=== PATIENT | male | born 1990 | race Caucasian/White ===

== ENCOUNTER 2019-11-22 15:32 | Inpatient (IN) | payer OTHER ==
[~2019-11-22] VITALS: Ht 170.2 cm; Wt 59.6 kg
--- NOTE | 2019-11-22 16:24 | NUR ---
PT C/O WAKING UP SATURDAY MORNING WITH LEFT RIB PAIN, DENIES TRAUMA. PT HAS BEEN WAITING IT OUT BY STRETCHING AND TAKING PAIN MEDS. OXYGEN 87% AT . PT TALKING IN FULL SENTENCES, OXYGEN MID 90% WHILE TALKING. CONNECTED TO MONITORING. CALL LIGHT IN REACH. MOM AT BEDSIDE. AWAITING ORDERS AT THIS TIME.
--- NOTE | 2019-11-22 16:57 | NUR ---
IV START. LABS DRAWN. UA COLLECTED. PT RESTING COMFORTABLY ON GURNEY. MOM AT BEDSIDE.
[2019-11-22] MEDS ORDERED: KETOROLAC 30 MG/1 ML IVPush ONE (17:00)
[2019-11-22] MEDS ORDERED: ACETAMINOPHEN 325 MG TABLET PO ONE (17:00)
[2019-11-22] MEDS ORDERED: SODIUM CHLORIDE FLUSH 10ML SYR IVF ONE (17:00)
[2019-11-22 17:20] LABS: BASOPHILS # (AUTO) 0.01 x10^3/uL (0-0.1); BASOPHILS % (AUTO) 0 % (0-1); EOSINOPHILS # (AUTO) 0.04 x10^3/uL (0-0.4); EOSINOPHILS % (AUTO) 1 % (1-7); LYMPHOCYTES # (AUTO) 0.41 x10^3/uL (1-3.4); LYMPHOCYTES % (AUTO) 12 % (22-44); MD NO; MEAN CORPUSCULAR HEMOGLOBIN 32.4 pg (27.5-34.5); MEAN CORPUSCULAR HGB CONC 33.6 g/dL (33.2-36.2); MEAN CORPUSCULAR VOLUME 96.4 fL (81-97); MONOCYTES # (AUTO) 0.28 x10^3/uL (0.2-0.8); MONOCYTES % (AUTO) 8 % (2-9); NEUTROPHILS # (AUTO) 2.59 x10^3/uL (1.8-6.8); NEUTROPHILS % (AUTO) 78 % (42-75); PLATELET COUNT 136 x10^3/uL (130-400); RED BLOOD COUNT 5.14 x10^6/uL (4.38-5.82); RED CELL DISTRIBUTION WIDTH 12.5 % (9.4-14.8)
[2019-11-22 17:22] LABS: ALBUMIN 4.2 g/dL (3.4-5.0); ANION GAP 9 mmol/L (5-15); CALCIUM 8.7 mg/dL (8.5-10.1); CHLORIDE 103 mmol/L (98-107); CREATININE 1.06 mg/dL (0.7-1.3)
[2019-11-22 17:22] LABS: MICROSCOPIC NOT IND
[2019-11-22 17:31] LABS: CULTURE INDICATED? NO
[2019-11-22] MEDS ORDERED: KETOROLAC 30 MG/1 ML ONE (17:37)
[2019-11-22] MEDS ORDERED: ACETAMINOPHEN 500 MG TABLET ONE (17:37)
--- NOTE | 2019-11-22 17:44 | NUR ---
MEDS ADMIN PER JAN. PT RESTING COMFORTABLY ON [facility]
[2019-11-22] MEDS ORDERED: FURO-93 PO (17:47)
[2019-11-22] MEDS ORDERED: LISI-424 PO (17:47)
[2019-11-22] MEDS ORDERED: ASPI-515 PO (17:47)
--- NOTE | 2019-11-22 18:09 | NUR ---
PT TAKEN TO CT
[2019-11-22] MEDS ORDERED: OMNIPAQUE 350 MG/ML, 100ML BOTTLE ONE (18:17)
[2019-11-22] MEDS ORDERED: HEPARIN 25,000 UNITS/500ML PMX 500 ML IV PRN ×2 (19:00→22:00)
[2019-11-22] MEDS ORDERED: HEPARIN 5,000 UNITS/ML, 1ML IV ONE (19:00)
[2019-11-22] MEDS ORDERED: HEPARIN 5,000 UNITS/ML, 1ML ONE (19:02)
[2019-11-22] MEDS ORDERED: HEPARIN 25,000 UNITS/500ML PMX 500 ML ONE (19:03)
--- NOTE | 2019-11-22 19:31 | NUR ---
HEPARIN STARTED PER PROTOCOL. VERIFIED WITH SECOND RN.
[2019-11-22] MEDS ORDERED: ACETAMINOPHEN 325 MG TABLET PO PRN (20:30)
[2019-11-22] MEDS ORDERED: DOCUSATE 100 MG CAPSULE PO PRN (20:30)
[2019-11-22] MEDS ORDERED: TEMAZEPAM 15 MG CAPSULE PO PRN (20:30)
[2019-11-22] MEDS ORDERED: ONDANSETRON ODT 4 MG PO PRN (20:30)
--- NOTE | 2019-11-22 20:38 | NUR ---
REPORT GIVEN TO SABRINA BHANDARI.
[2019-11-22 21:18] VITALS: BP 114/64
[2019-11-22] MEDS ORDERED: HEPARIN 5,000 UNITS/ML, 1ML IV PRN (22:00)
[2019-11-23 01:19] VITALS: BP 104/66
[2019-11-23 01:52] LABS: BASOPHILS # (AUTO) 0.01 x10^3/uL (0-0.1); BASOPHILS % (AUTO) 0 % (0-1); EOSINOPHILS # (AUTO) 0.02 x10^3/uL (0-0.4); EOSINOPHILS % (AUTO) 1 % (1-7); LYMPHOCYTES % (AUTO) 29 % (22-44); MD NO; MEAN CORPUSCULAR HEMOGLOBIN 31.7 pg (27.5-34.5); MEAN CORPUSCULAR HGB CONC 33.4 g/dL (33.2-36.2); MEAN CORPUSCULAR VOLUME 94.8 fL (81-97); MEAN PLATELET VOLUME 8.9 fL (7.4-10.4); MONOCYTES # (AUTO) 0.34 x10^3/uL (0.2-0.8); MONOCYTES % (AUTO) 10 % (2-9); NEUTROPHILS % (AUTO) 60 % (42-75); PLATELET COUNT 128 x10^3/uL (130-400); RED CELL DISTRIBUTION WIDTH 12.8 % (9.4-14.8)
[2019-11-23 01:55] LABS: ANION GAP 6 mmol/L (5-15); CALCIUM 8.4 mg/dL (8.5-10.1); CHLORIDE 107 mmol/L (98-107); CREATININE 0.98 mg/dL (0.7-1.3)
[2019-11-23 07:21] VITALS: BP 107/65
[2019-11-23] MEDS ORDERED: POTASSIUM CHLORIDE 20 MEQ TAB.ER.PRT PO ONE (08:00)
[2019-11-23] MEDS: LISINOPRIL 5 MG TABLET PO SCH (08:28)
[2019-11-23] MEDS: ASPIRIN 81 MG TABLET EC PO SCH (08:28)
[2019-11-23] MEDS: FUROSEMIDE 20 MG TABLET PO SCH (08:29)
[2019-11-23] MEDS: APIXABAN 5 MG TABLET PO SCH ×2 (10:59→21:21)
[2019-11-23 13:28] VITALS: BP 105/70
[2019-11-23 18:42] VITALS: BP 104/67
[2019-11-24 01:15] VITALS: BP 110/76
[2019-11-24 07:14] VITALS: BP 93/56
[2019-11-24] MEDS: FUROSEMIDE 20 MG TABLET PO SCH (08:52)
[2019-11-24] MEDS: APIXABAN 5 MG TABLET PO SCH ×2 (08:52→20:35)
[2019-11-24] MEDS: LISINOPRIL 5 MG TABLET PO SCH (08:52)
[2019-11-24] MEDS: ASPIRIN 81 MG TABLET EC PO SCH (08:52)
[2019-11-24 09:36] LABS: BASOPHILS # (AUTO) 0.02 x10^3/uL (0-0.1); BASOPHILS % (AUTO) 1 % (0-1); EOSINOPHILS # (AUTO) 0.02 x10^3/uL (0-0.4); EOSINOPHILS % (AUTO) 1 % (1-7); LYMPHOCYTES # (AUTO) 1.12 x10^3/uL (1-3.4); LYMPHOCYTES % (AUTO) 33 % (22-44); MD NO; MEAN CORPUSCULAR HGB CONC 33.5 g/dL (33.2-36.2); MEAN CORPUSCULAR VOLUME 95.5 fL (81-97); MEAN PLATELET VOLUME 8.7 fL (7.4-10.4); MONOCYTES # (AUTO) 0.35 x10^3/uL (0.2-0.8); MONOCYTES % (AUTO) 11 % (2-9); NEUTROPHILS # (AUTO) 1.84 x10^3/uL (1.8-6.8); NEUTROPHILS % (AUTO) 55 % (42-75); PLATELET COUNT 123 x10^3/uL (130-400); RED BLOOD COUNT 5.25 x10^6/uL (4.38-5.82); RED CELL DISTRIBUTION WIDTH 12.5 % (9.4-14.8)
[2019-11-24 14:00] VITALS: BP 100/61
[2019-11-24 19:27] VITALS: BP 99/64
[2019-11-25 01:51] VITALS: BP 114/72
[2019-11-25 07:22] VITALS: BP 108/70
[2019-11-25 08:00] LABS: BASOPHILS # (AUTO) 0.01 x10^3/uL (0-0.1); BASOPHILS % (AUTO) 0 % (0-1); EOSINOPHILS # (AUTO) 0.04 x10^3/uL (0-0.4); EOSINOPHILS % (AUTO) 1 % (1-7); LYMPHOCYTES # (AUTO) 1.16 x10^3/uL (1-3.4); LYMPHOCYTES % (AUTO) 34 % (22-44); MD NO; MEAN CORPUSCULAR HEMOGLOBIN 31.6 pg (27.5-34.5); MEAN CORPUSCULAR HGB CONC 33.2 g/dL (33.2-36.2); MEAN CORPUSCULAR VOLUME 95.3 fL (81-97); MEAN PLATELET VOLUME 8.8 fL (7.4-10.4); MONOCYTES # (AUTO) 0.34 x10^3/uL (0.2-0.8); MONOCYTES % (AUTO) 10 % (2-9); NEUTROPHILS # (AUTO) 1.83 x10^3/uL (1.8-6.8); NEUTROPHILS % (AUTO) 54 % (42-75); PLATELET COUNT 127 x10^3/uL (130-400); RED BLOOD COUNT 5.24 x10^6/uL (4.38-5.82); RED CELL DISTRIBUTION WIDTH 12.4 % (9.4-14.8)
[2019-11-25 08:10] LABS: ANION GAP 4 mmol/L (5-15); CALCIUM 8.6 mg/dL (8.5-10.1); CHLORIDE 105 mmol/L (98-107); CREATININE 0.94 mg/dL (0.7-1.3)
[2019-11-25] MEDS: APIXABAN 5 MG TABLET PO SCH (09:20)
[2019-11-25] MEDS: LISINOPRIL 5 MG TABLET PO SCH (09:21)
[2019-11-25] MEDS: FUROSEMIDE 20 MG TABLET PO SCH (09:21)
[2019-11-25] MEDS: ASPIRIN 81 MG TABLET EC PO SCH (09:21)
[2019-11-25] MEDS ORDERED: APIX5TAB PO (12:01)
[2019-11-25] MEDS ORDERED: FLU VACC QS2019-20 36MOS UP/PF 0.5 ML IM-VACC ONE (13:00)
[2019-11-30] MEDS ORDERED: APIXABAN 5 MG TABLET PO SCH (21:00)
== END 2019-11-25 13:53 | disposition home or self-care (01) | DRG 176 ==
LOC: ED 17:57 → EDIP 19:24 → 4WST 21:35 → DCLOUNGE 11-25 13:45
PROVIDERS: ADMIT Internal Medicine; ATTEND Hospitalist
DX: I26.99 Other pulmonary embolism without acute cor pulmonale (principal); D68.62 Lupus anticoagulant syndrome; J98.11 Atelectasis; D72.819 Decreased white blood cell count, unspecified; F12.90 Cannabis use, unspecified, uncomplicated; Z88.0 Allergy status to penicillin; Z79.01 Long term (current) use of anticoagulants; Z87.74 Personal history of (corrected) congenital malformations of heart and circulatory system; Z95.0 Presence of cardiac pacemaker
CPT/HCPCS: 0399T; 36415; 80048; 81240; 85025; 85302; 85303; 85305; 85306; 85520; 85598; 85610; 85613; 85670; 85705; 85730; 85732; 86146; 86147; 90686; 93306; 93970; G0378; J1644; J1885; Q9967